=== PATIENT | female | born 1995 | race Caucasian/White ===

== ENCOUNTER 2017-01-31 15:58 | Emergency (ER) | payer OTHER ==
[~2017-01-31] VITALS: Ht 154.9 cm; Wt 60.0 kg
[2017-01-31 16:00] VITALS: BP 128/58; PULSE 82; RESP 14; TEMP 98.4; O2SAT 100
--- NOTE | 2017-01-31 16:29 | PD ---
HPI Chief Complaint: Abdominal Pain Time Seen by Provider: 16:20 Travel History International Travel<30 days: No Contact w/Intl Traveler<30days: No Traveled to known affect area: No History of Present Illness HPI 22 yo F RLQ pain for three days intermittently. no fever. no n/v. no vb/vd. appetite decreased. no diarrhea. no similar prior pains. no motrin/tylenol. pepto bismol not helpful. LMP approx two weeks prior. no hx appendicitis. no similar priors. no pmh. no hx surgery. PFSH Past Medical History ?: Not LMP: 01/18/17 Social History Tobacco Use: No Allergies-Medications (Allergen,Severity, Reaction): Coded Allergies: No Known Allergies (Unverified , 01/31/17) Review of Systems Except as stated in HPI: all other systems reviewed are Neg General / Constitutional: No: Fever Gastrointestinal: No: Nausea, Vomiting Physical Exam Narrative GENERAL: 22 yo F, WNWD, mild distress SKIN: Warm and dry. HEAD: Atraumatic. Normocephalic. EYES: Pupils equal and round. No scleral icterus. No injection or drainage. ENT: No nasal bleeding or discharge. Mucous membranes pink and moist. NECK: Trachea midline. No JVD. CARDIOVASCULAR: Regular rate and rhythm. RESPIRATORY: No accessory muscle use. Clear to auscultation. Breath sounds equal bilaterally. GASTROINTESTINAL: Soft. TTP RLQ. Negative Espino's. MUSCULOSKELETAL: Extremities without clubbing, cyanosis, or edema. No obvious deformities. NEUROLOGICAL: Awake and alert. No obvious cranial nerve deficits. Motor grossly within normal limits. Five out of 5 muscle strength in the arms and legs. Normal speech. PSYCHIATRIC: Appropriate mood and affect; insight and judgment normal. Data Data Last Documented VS Vital Signs Date Time Temp Pulse Resp B/P (MAP) Pulse Ox O2 Delivery O2 Flow Rate FiO2 01/31/17 20:41 01/31/17 16:00 98.4 82 14 100 VS reviewed Orders Orders Complete Blood Count With Diff (01/31/17 16:30) Comprehensive Metabolic Panel (01/31/17 16:30) Lipase (01/31/17 16:30) Urinalysis - C+S If Indicated (01/31/17 16:30) Ct Abd/Pel W Iv Contrast(Rout) (01/31/17 16:30) Iv Access Insert/Monitor (01/31/17 16:30) Ecg Monitoring (01/31/17 16:30) Oximetry (01/31/17 16:30) Sodium Chlor 0.9% 1000 Ml Inj (Ns 1000 M (01/31/17 16:30) Sodium Chloride 0.9% Flush (Ns Flush) (01/31/17 16:30) Ed Urine Pregnancytest Poc (01/31/17 16:30) Oral Contrast - Adult (01/31/17 16:58) Diatrizoate Liq ( Gastroview Liq) (01/31/17 17:31) Potassium Chloride (Kcl) (01/31/17 18:45) Iohexol 350 Inj (Omnipaque 350 Inj) (01/31/17 19:25) Ed Discharge Order (01/31/17 20:06) Labs Laboratory Tests Test 01/31/17 16:45 White Blood Count 13.1 TH/MM3 Red Blood Count 3.97 MIL/MM3 Hemoglobin 11.0 GM/DL Hematocrit 32.1 % Mean Corpuscular Volume 80.9 FL Mean Corpuscular Hemoglobin 27.6 PG Mean Corpuscular Hemoglobin Concent 34.1 % Red Cell Distribution Width 14.9 % Platelet Count 357 TH/MM3 Mean Platelet Volume 7.5 FL Neutrophils (%) (Auto) 73.5 % Lymphocytes (%) (Auto) 18.2 % Monocytes (%) (Auto) 7.5 % Eosinophils (%) (Auto) 0.4 % Basophils (%) (Auto) 0.4 % Neutrophils # (Auto) 9.6 TH/MM3 Lymphocytes # (Auto) 2.4 TH/MM3 Monocytes # (Auto) 1.0 TH/MM3 Eosinophils # (Auto) 0.1 TH/MM3 Basophils # (Auto) 0.1 TH/MM3 CBC Comment DIFF FINAL Differential Comment Urine Color LIGHT-YELLOW Urine Turbidity CLEAR Urine pH 6.0 Urine Specific [place] 1.004 Urine Protein NEG mg/dL Urine Glucose (UA) NEG mg/dL Urine Ketones NEG mg/dL Urine Occult Blood SMALL Urine Nitrite NEG Urine Bilirubin NEG Urine Urobilinogen LESS THAN 2.0 MG/DL Urine Leukocyte Esterase NEG Urine RBC 3 /hpf Urine WBC 1 /hpf Urine Squamous Epithelial Cells 1 /hpf Urine Bacteria FEW /hpf Microscopic Urinalysis Comment CULT NOT INDICATED Blood Urea Nitrogen 7 MG/DL Creatinine 0.77 MG/DL Random Glucose 85 MG/DL Total Protein 8.0 GM/DL Albumin 3.6 GM/DL Calcium Level 8.8 MG/DL Alkaline Phosphatase 60 U/L Aspartate Amino Transf (AST/SGOT) 13 U/L Alanine Aminotransferase (ALT/SGPT) 19 U/L Total Bilirubin 0.3 MG/DL Sodium Level 137 MEQ/L Potassium Level 3.2 MEQ/L Chloride Level 104 MEQ/L Carbon Dioxide Level 25.2 MEQ/L Anion Gap 8 MEQ/L Estimat Glomerular Filtration Rate 95 ML/MIN Lipase 113 U/L [facility] Medical Decision Making Medical Screen Exam Complete: Yes Emergency Medical Condition: Yes Differential Diagnosis appendicitis, torsed ovary, UTI, TOA, mittleshmirtz, IUP, colitis Narrative Course CBC & BMP Diagram 01/31/17 16:45 Total Protein 8.0, Albumin 3.6, Calcium Level 8.8, Alkaline Phosphatase 60, Aspartate Amino Transf (AST/SGOT) 13 L, Alanine Aminotransferase (ALT/SGPT) 19, Total Bilirubin 0.3 Possible appendicitis WOrk up started. Case to be followed by [facility] MARISELA Adriano Murphy MD Jan 31, 2017 16:29
[2017-01-31] MEDS ORDERED: SODIUM CHLOR 0.9% 1000 ML INJ 1,000 ML IV SCH (16:30)
[2017-01-31] MEDS ORDERED: SODIUM CHLORIDE 0.9% FLUSH 10 ML FLUSH IV FLUSH PRN (16:30)
--- NOTE | 2017-01-31 16:40 | PD ---
Physical Exam Date Seen by Provider: Jan 31, 2017 Time Seen by Provider: 16:30 Narrative 22-year-old female presents to the emergency department with right lower quadrant pain. See Dr. Sandhu's note as well for more information. Laboratory Tests Test 01/31/17 16:45 White Blood Count 13.1 TH/MM3 Red Blood Count 3.97 MIL/MM3 Hemoglobin 11.0 GM/DL Hematocrit 32.1 % Mean Corpuscular Volume 80.9 FL Mean Corpuscular Hemoglobin 27.6 PG Mean Corpuscular Hemoglobin Concent 34.1 % Red Cell Distribution Width 14.9 % Platelet Count 357 TH/MM3 Mean Platelet Volume 7.5 FL Neutrophils (%) (Auto) 73.5 % Lymphocytes (%) (Auto) 18.2 % Monocytes (%) (Auto) 7.5 % Eosinophils (%) (Auto) 0.4 % Basophils (%) (Auto) 0.4 % Neutrophils # (Auto) 9.6 TH/MM3 Lymphocytes # (Auto) 2.4 TH/MM3 Monocytes # (Auto) 1.0 TH/MM3 Eosinophils # (Auto) 0.1 TH/MM3 Basophils # (Auto) 0.1 TH/MM3 CBC Comment DIFF FINAL Differential Comment Urine Color LIGHT-YELLOW Urine Turbidity CLEAR Urine pH 6.0 Urine Specific [place] 1.004 Urine Protein NEG mg/dL Urine Glucose (UA) NEG mg/dL Urine Ketones NEG mg/dL Urine Occult Blood SMALL Urine Nitrite NEG Urine Bilirubin NEG Urine Urobilinogen LESS THAN 2.0 MG/DL Urine Leukocyte Esterase NEG Urine RBC 3 /hpf Urine WBC 1 /hpf Urine Squamous Epithelial Cells 1 /hpf Urine Bacteria FEW /hpf Microscopic Urinalysis Comment CULT NOT INDICATED Blood Urea Nitrogen 7 MG/DL Creatinine 0.77 MG/DL Random Glucose 85 MG/DL Total Protein 8.0 GM/DL Albumin 3.6 GM/DL Calcium Level 8.8 MG/DL Alkaline Phosphatase 60 U/L Aspartate Amino Transf (AST/SGOT) 13 U/L Alanine Aminotransferase (ALT/SGPT) 19 U/L Total Bilirubin 0.3 MG/DL Sodium Level 137 MEQ/L Potassium Level 3.2 MEQ/L Chloride Level 104 MEQ/L Carbon Dioxide Level 25.2 MEQ/L Anion Gap 8 MEQ/L Estimat Glomerular Filtration Rate 95 ML/MIN Lipase 113 U/L WBCs mildly elevated. Mild hypokalemia- 30meq KCl administered. Imaging study pending as of handoff to LEXIE Villafana. Data Data Last Documented VS Vital Signs Date Time Temp Pulse Resp B/P (MAP) Pulse Ox O2 Delivery O2 Flow Rate FiO2 01/31/17 16:00 98.4 82 14 128/58 (81) 100 Orders Orders Complete Blood Count With Diff (01/31/17 16:30) Comprehensive Metabolic Panel (01/31/17 16:30) Lipase (01/31/17 16:30) Urinalysis - C+S If Indicated (01/31/17 16:30) Ct Abd/Pel W Iv Contrast(Rout) (01/31/17 16:30) Iv Access Insert/Monitor (01/31/17 16:30) Ecg Monitoring (01/31/17 16:30) Oximetry (01/31/17 16:30) Sodium Chlor 0.9% 1000 Ml Inj (Ns 1000 M (01/31/17 16:30) Sodium Chloride 0.9% Flush (Ns Flush) (01/31/17 16:30) Ed Urine Pregnancytest Poc (01/31/17 16:30) Oral Contrast - Adult (01/31/17 16:58) Diatrizoate Liq ( Gastroview Liq) (01/31/17 17:31) Potassium Chloride (Kcl) (01/31/17 18:45) Labs Laboratory Tests Test 01/31/17 16:45 White Blood Count 13.1 TH/MM3 Red Blood Count 3.97 MIL/MM3 Hemoglobin 11.0 GM/DL Hematocrit 32.1 % Mean Corpuscular Volume 80.9 FL Mean Corpuscular Hemoglobin 27.6 PG Mean Corpuscular Hemoglobin Concent 34.1 % Red Cell Distribution Width 14.9 % Platelet Count 357 TH/MM3 Mean Platelet Volume 7.5 FL Neutrophils (%) (Auto) 73.5 % Lymphocytes (%) (Auto) 18.2 % Monocytes (%) (Auto) 7.5 % Eosinophils (%) (Auto) 0.4 % Basophils (%) (Auto) 0.4 % Neutrophils # (Auto) 9.6 TH/MM3 Lymphocytes # (Auto) 2.4 TH/MM3 Monocytes # (Auto) 1.0 TH/MM3 Eosinophils # (Auto) 0.1 TH/MM3 Basophils # (Auto) 0.1 TH/MM3 CBC Comment DIFF FINAL Differential Comment Urine Color LIGHT-YELLOW Urine Turbidity CLEAR Urine pH 6.0 Urine Specific [place] 1.004 Urine Protein NEG mg/dL Urine Glucose (UA) NEG mg/dL Urine Ketones NEG mg/dL Urine Occult Blood SMALL Urine Nitrite NEG Urine Bilirubin NEG Urine Urobilinogen LESS THAN 2.0 MG/DL Urine Leukocyte Esterase NEG Urine RBC 3 /hpf Urine WBC 1 /hpf Urine Squamous Epithelial Cells 1 /hpf Urine Bacteria FEW /hpf Microscopic Urinalysis Comment CULT NOT INDICATED Blood Urea Nitrogen 7 MG/DL Creatinine 0.77 MG/DL Random Glucose 85 MG/DL Total Protein 8.0 GM/DL Albumin 3.6 GM/DL Calcium Level 8.8 MG/DL Alkaline Phosphatase 60 U/L Aspartate Amino Transf (AST/SGOT) 13 U/L Alanine Aminotransferase (ALT/SGPT) 19 U/L Total Bilirubin 0.3 MG/DL Sodium Level 137 MEQ/L Potassium Level 3.2 MEQ/L Chloride Level 104 MEQ/L Carbon Dioxide Level 25.2 MEQ/L Anion Gap 8 MEQ/L Estimat Glomerular Filtration Rate 95 ML/MIN Lipase 113 U/L MDM Supervised Visit with MARISELA: Yes Cate Toledo Jan 31, 2017 16:40
[2017-01-31 16:56] LABS: AUTOMATED NEUTROPHIL # 9.6 TH/MM3 (1.8-7.7); BASOPHIL # 0.1 TH/MM3 (0-0.2); BASOPHIL % 0.4 % (0.0-2.0); EOSINOPHIL # 0.1 TH/MM3 (0-0.4); EOSINOPHIL % 0.4 % (0.0-4.0); HEMATOCRIT 32.1 % (35.0-46.0); HEMO FLAGS DIFF FINAL; LYMPH % 18.2 % (9.0-44.0); LYMPHOCYTE # 2.4 TH/MM3 (1.0-4.8); MEAN CELL VOLUME 80.9 FL (80.0-100.0); MEAN CORPUSCULAR HEMOGLOBIN 27.6 PG (27.0-34.0); MEAN CORPUSCULAR HGB CONC 34.1 % (32.0-36.0); MONO % 7.5 % (0.0-8.0); NEUT % 73.5 % (16.0-70.0); PLATELET COUNT 357 TH/MM3 (150-450); RED BLOOD COUNT 3.97 MIL/MM3 (4.00-5.30); RED CELL DISTRIBUTION WIDTH 14.9 % (11.6-17.2); WHITE BLOOD COUNT 13.1 TH/MM3 (4.0-11.0)
[2017-01-31 17:00] LABS: BACTERIA, URINE FEW /hpf; BLOOD, URINE SMALL (NEG); COMMENT (UR) CULT NOT INDICATED; CULTURE IF INDICATED CULT NOT INDICATED; GLUCOSE,URINE NEG (NEG); KETONE, URINE NEG (NEG); NITRITE,URINE NEG (NEG); SQUAMOUS EPITHELIAL CELL URINE 1 /hpf (0-5); URINE COLOR LIGHT-YELLOW (YELLW/STRAW)
[2017-01-31 17:12] LABS: ANION GAP 8 MEQ/L (5-15); AST (GOT) 13 U/L (15-37); BICARBONATE 25.2 MEQ/L (21.0-32.0); BLOOD UREA NITROGEN 7 MG/DL (7-18); CHLORIDE 104 MEQ/L (98-107); GLOMERULAR FILTRATION RATE 95 ML/MIN (>89); POTASSIUM 3.2 MEQ/L (3.5-5.1); SODIUM (NA) 137 MEQ/L (136-145)
[2017-01-31 17:13] LABS: ALT (GPT) 19 U/L (10-53)
[2017-01-31 17:15] LABS: ALKALINE PHOSPHATASE 60 U/L (45-117); TOTAL BILIRUBIN ADULT 0.3 MG/DL (0.2-1.0)
[2017-01-31] MEDS ORDERED: DIATRIZOATE MEGLUM/DIATRIZOATE SOD 9 ML CUP ONE (17:31)
[2017-01-31] MEDS ORDERED: POTASSIUM CHLORIDE 10 MEQ CONTROLLED RELEASE TAB PO ONE (18:45)
[2017-01-31] MEDS ORDERED: IOHEXOL 350 MG/ML 10 ML VIAL (for RAD DIAG) IVCONTRAST ONE (19:25)
--- NOTE | 2017-01-31 19:52 | RADRPT ---
EXAM DATE/TIME: 01/31/2017 19:14 [facility] COMPARISON: No previous studies available for comparison. INDICATIONS : Right lower quadrant abdomen pain. IV CONTRAST: 100 cc Omnipaque 350 (iohexol) IV ORAL CONTRAST: Prescribed oral contrast ingested. RADIATION DOSE: 6.64 CTDIvol (mGy) MEDICAL HISTORY : None SURGICAL HISTORY : None. ENCOUNTER: Initial ACUITY: 1 day PAIN SCALE: 7/10 LOCATION: Right lower quadrant abdomen TECHNIQUE: Volumetric scanning of the abdomen and pelvis was performed. Using automated exposure control and ad justment of the mA and/or kV according to patient size, radiation dose was kept as low as reasonably achievable to obtain optimal diagnostic quality images. DICOM format image data is available electro nically for review and comparison. FINDINGS: Lung bases are clear. No acute findings in the liver, spleen, adrenals, kidneys or pancreas. No calci fied gallstones. Mild constipation. Appendix appears normal. No definite inflammatory changes identified within the ab domen and pelvis. Small amount of free fluid in the pelvis. No acute bony abnormalities. CONCLUSION: 1. Trace free fluid in the pelvis. Appendix has normal caliber. Mild constipation. No obstruction or free air. David Pillai MD on January 31, 2017 at 19:47 Board Certified Radiologist. This report was verified electronically.
--- NOTE | 2017-01-31 20:06 | PD ---
Physical Exam Narrative Patient was signed out to me by previous provider pitting CT results. Please see their documentation for full H&P. Briefly this is a 22-year-old female complaining of intermittent right lower quadrant pain of the past few days stabbing like in nature. Patient denies any pain currently. GENERAL: Well-developed, well nourished, in no acute distress, and non-ill appearing. SKIN: Focused skin assessment warm and dry. HEAD: Atraumatic. Normocephalic. EYES: Pupils equal and round. EOMI. No scleral icterus. No injection or drainage. ENT: No nasal bleeding or discharge. Mucous membranes pink and moist. NECK: Trachea midline. Supple. No nuclear rigidity. RESPIRATORY: No accessory muscle use. No respiratory distress. GASTROINTESTINAL: Abdomen soft, non-tender, nondistended, and no guarding. Hepatic and splenic margins not palpable. No pulsatile mass. MUSCULOSKELETAL: No obvious deformities. No clubbing. No cyanosis. No edema. Full range of motion. NEUROLOGICAL: Awake and alert. No obvious cranial nerve deficits. Motor grossly within normal limits. Normal speech. PSYCHIATRIC: Appropriate mood and affect; insight and judgment normal. Data Data Last Documented VS Vital Signs Date Time Temp Pulse Resp B/P (MAP) Pulse Ox O2 Delivery O2 Flow Rate FiO2 01/31/17 20:41 01/31/17 16:00 98.4 82 14 100 Orders Orders Complete Blood Count With Diff (01/31/17 16:30) Comprehensive Metabolic Panel (01/31/17 16:30) Lipase (01/31/17 16:30) Urinalysis - C+S If Indicated (01/31/17 16:30) Ct Abd/Pel W Iv Contrast(Rout) (01/31/17 16:30) Iv Access Insert/Monitor (01/31/17 16:30) Ecg Monitoring (01/31/17 16:30) Oximetry (01/31/17 16:30) Sodium Chlor 0.9% 1000 Ml Inj (Ns 1000 M (01/31/17 16:30) Sodium Chloride 0.9% Flush (Ns Flush) (01/31/17 16:30) Ed Urine Pregnancytest Poc (01/31/17 16:30) Oral Contrast - Adult (01/31/17 16:58) Diatrizoate Liq ( Gastroview Liq) (01/31/17 17:31) Potassium Chloride (Kcl) (01/31/17 18:45) Iohexol 350 Inj (Omnipaque 350 Inj) (01/31/17 19:25) Ed Discharge Order (01/31/17 20:06) Labs Laboratory Tests Test 01/31/17 16:45 White Blood Count 13.1 TH/MM3 Red Blood Count 3.97 MIL/MM3 Hemoglobin 11.0 GM/DL Hematocrit 32.1 % Mean Corpuscular Volume 80.9 FL Mean Corpuscular Hemoglobin 27.6 PG Mean Corpuscular Hemoglobin Concent 34.1 % Red Cell Distribution Width 14.9 % Platelet Count 357 TH/MM3 Mean Platelet Volume 7.5 FL Neutrophils (%) (Auto) 73.5 % Lymphocytes (%) (Auto) 18.2 % Monocytes (%) (Auto) 7.5 % Eosinophils (%) (Auto) 0.4 % Basophils (%) (Auto) 0.4 % Neutrophils # (Auto) 9.6 TH/MM3 Lymphocytes # (Auto) 2.4 TH/MM3 Monocytes # (Auto) 1.0 TH/MM3 Eosinophils # (Auto) 0.1 TH/MM3 Basophils # (Auto) 0.1 TH/MM3 CBC Comment DIFF FINAL Differential Comment Urine Color LIGHT-YELLOW Urine Turbidity CLEAR Urine pH 6.0 Urine Specific [place] 1.004 Urine Protein NEG mg/dL Urine Glucose (UA) NEG mg/dL Urine Ketones NEG mg/dL Urine Occult Blood SMALL Urine Nitrite NEG Urine Bilirubin NEG Urine Urobilinogen LESS THAN 2.0 MG/DL Urine Leukocyte Esterase NEG Urine RBC 3 /hpf Urine WBC 1 /hpf Urine Squamous Epithelial Cells 1 /hpf Urine Bacteria FEW /hpf Microscopic Urinalysis Comment CULT NOT INDICATED Blood Urea Nitrogen 7 MG/DL Creatinine 0.77 MG/DL Random Glucose 85 MG/DL Total Protein 8.0 GM/DL Albumin 3.6 GM/DL Calcium Level 8.8 MG/DL Alkaline Phosphatase 60 U/L Aspartate Amino Transf (AST/SGOT) 13 U/L Alanine Aminotransferase (ALT/SGPT) 19 U/L Total Bilirubin 0.3 MG/DL Sodium Level 137 MEQ/L Potassium Level 3.2 MEQ/L Chloride Level 104 MEQ/L Carbon Dioxide Level 25.2 MEQ/L Anion Gap 8 MEQ/L Estimat Glomerular Filtration Rate 95 ML/MIN Lipase 113 U/L MDM Supervised Visit with MARISELA: No Narrative Course The patient presented with right sided abdominal pain. The patient appeared comfortable and hydrated. Laboratory and radiologic evaluation with a contrasted CT scan of the abdomen and pelvis was performed to rule out appendicitis. Evaluation revealed no clinical evidence of acute appendicitis at this time. However the patient was given appendicitis warnings an informed of possible early appendicitis not detected. The patient was instructed to follow up with their regular physician for re-evaluation within the next 24 hours, or may return here for re-evaluation. The patient is to return if worsens, pain worsens or changes, develop persistent fever, inability to tolerate fluids with or without vomiting, unable to establish follow up or as needed. There was no evidence of an acute, surgical abdomen at this time. There was no clinical evidence to support cholecystitis/cholelithiasis, pancreatitis, perforation of gastric ulcer, colitis, diverticulitis, obstruction, volvulus, early appendicitis, or hernial incarceration or strangulation at this time. There was no evidence to support vascular pathology such as AAA, mesenteric ischemia. There was also no clinical evidence by history, exam or risk factors to suggest atypical presentation of cardiac disease such as ACS, AMI or atypical angina. No evidence to suggest genitourinary etiology as well. During the course of the ED visit the patient was given IVF, the patient noted improvement. The patient agreed with plan of care and management. The patient was instructed to follow up with their physician. Patient in no obvious distress upon re-evaluation. All pertinent laboratory/ Radiology result(s) discussed with patient/family. After reviewing CT scan results the patient pelvic exam was recommended to rule out PID, cervicitis, STD , other possible causes of her right lower quadrant pain. Patient is declining at this time and is just wanting to follow-up with her primary care doctor.Any questions/concerns in reference to patient diagnosis/condition discussed and clarified prior to patient's discharge. Reinforced sheer importance of close follow up with patient's primary physician or primary care clinic. Instructed patient to return to ED immediately, if symptoms return/worsen. Patient showed understanding of above instructions. Further instructions and recommendations were detailed in discharge paperwork. Patient ambulated without difficulty out of ED at discharge. Diagnosis Primary Impression: Right lower quadrant abdominal pain Patient Instructions: Acute Abdominal Pain (GEN), General Instructions Additional Instruction: Follow-up with your primary care physician or return here in 24 hours for recheck. Return to the emergency department if symptoms get worse. Disposition: 01 DISCHARGE HOME Condition: Stable Corwin Foster Jan 31, 2017 20:06
== END 2017-01-31 20:42 | disposition home or self-care (01) ==
LOC: NEPD 15:58
DX: R10.31 Right lower quadrant pain (principal); E87.6 Hypokalemia; K59.00 Constipation, unspecified
CPT/HCPCS: 74177; 80053; 81001; 83690; 84703; 85025; 96360; 96361; 99285; J7030; Q9963; Q9967